=== PATIENT | male | born 1950 | race Caucasian/White ===

== ENCOUNTER 2020-01-25 09:18 | Outpatient (CLI) | payer MEDICARE ==
--- NOTE | 2020-01-25 10:01 | CT ---
Exam: Head CT without contrast HISTORY: Patient tripped and fell. Head injury. COMPARISON: none FINDINGS: Hemorrhage: No intraparenchymal hemorrhage or extra-axial hematoma. Brain parenchyma: Cortical pearl-white matter differentiation is preserved. No mass effect or midline shift. Basilar cisterns are patent. Ventricular system: Ventricles and sulci are patent and symmetric. Calvarium: Intact. Sinuses and mastoid air cells: Adequate aeration. IMPRESSION: No intracranial posttraumatic sequelae.
== END 2020-01-25 09:19 | disposition home or self-care (01) ==
LOC: CT 09:18
PROVIDERS: ATTEND Family Medicine
DX: S09.90XS Unspecified injury of head, sequela (principal); R41.0 Disorientation, unspecified
CPT/HCPCS: 70450